=== PATIENT | female | born 1995 | race Caucasian/White ===

== ENCOUNTER 2020-09-19 09:35 | Emergency (ER) | payer BC, MEDICAID, SELFPAY ==
[2020-09-19 09:57] VITALS: BP 139/99; PULSE 85; RESP 16; TEMP 36.6; O2SAT 98
--- NOTE | 2020-09-19 10:22 | ED.GENADULT ---
HPI - General Adult General Chief complaint: Ear Stated complaint: ear infection Time Seen by Provider: 09/19/20 10:23 Source: patient and RN notes reviewed Mode of arrival: ambulatory Limitations: no limitations History of Present Illness HPI narrative: 24-year-old female presents with complaints of left otalgia, throbbing, and decrease hearing for the past 2 days. Amber reports increasing throbbing and pain radiating into LT side of face throughout the night. Reports taking Ibuprofen last on 09/17/2020 and Motrin last on Monday09/18/2020 and OTC ear drops with some relief. Denies swimming or getting water into ear. Denies URI symptoms. No high fevers or chills. Denies injury to ear. No nasal drainage and congestion. Denies nausea, vomiting, tinnitus, and dizziness. Tolerating po intake well. LMP 08/15/2020, irregular per Amber. Remains active. The patient reports she have not been diagnosed with COVID-19. The patient reports she is not waiting for the results of a COVID-19 lab test. The patient reports she do not have weakness or fatigue. The patient reports she do not have a new or worsening cough or shortness of breath. Denies chest pain. The patient reports she do not have any sore throat, loss of taste or smell, and diarrhea. Denies recent traveling. Denies concerns for COVID-19 or exposures been home with limited outdoor exposure except for essential household needs and return home. At this time, patient is not suspected of having COVID-19. Some parts of this dictation were generated by voice recognition software and may contain typographical and/or grammatical inaccuracies. Related Data Allergies Allergy/AdvReac Type Severity Reaction Status Date / Time No Known Allergies Allergy Unverified 09/19/20 09:45 Review of Systems Review of Systems: Narrative: CONSTITUTIONAL: Denies fever, chills, sweats. EYES: Denies visual changes, redness, discharge. ENT: Denies rhinorrhea, congestion, sore throat, drainage, and itching. Complains of LT otalgia, throbbing, decrease hearing. CARDIOVASCULAR: Denies chest pain, palpitations, edema. RESPIRATORY: Denies dyspnea, wheezing, cough. GASTROINTESTINAL: Denies abdominal pain, nausea, vomiting, diarrhea. GENITOURINARY: Denies dysuria, hematuria, abnormal discharge. SKIN: Denies rash or itching. MUSCULOSKELETAL: Denies acute back pain, joint pain, or myalgia. NEUROLOGIC: Denies numbness or focal weakness. PSYCHIATRIC: Denies anxiety or depression. All systems reviewed & are unremarkable except as noted in HPI and below PMFSH Past Medical History Medical History (Updated 09/20/20 @ 00:01 by Enedelia Samayoa) No significant past medical history Surgical History Surgical History (Updated 09/19/20 @ 10:37 by MARK ANTHONY Kovacs) No significant past surgical history Family History Family History (Updated 09/19/20 @ 10:37 by MARK ANTHONY Kovacs) Father Alive and well Mother Alive and well Social History Social History Smoking status: Never smoker Second hand tobacco smoke exposure: No Substance use: never Gender identity (if verbalized by the patient): Female Spiritual care concerns: No Comments At time of signature, I have reviewed and agree with nursing past medical, surgical, social, and family history. Please see nursing chart for further information. There is no relevant family history pertinent to the presenting complaint. Exam Narrative: Exam Narrative: GENERAL: This is a well-nourished, well-developed patient, in no apparent distress. Talks in full sentences and ambulates with steady gait without dyspnea HEAD: Normocephalic, atraumatic. EYES: PERRL. Sclera clear/white. Vision is grossly intact. EARS: Pinna is normal shape and contour. LT ear with mild erythema and moderate swelling of canal without discharge, moderate tenderness to auricle and pinna with palpation
== END 2020-09-19 10:42 | disposition home or self-care (01) ==
PROVIDERS: Emergency Provider Nurse Practitioner Family
DX: H60.91 Unspecified otitis externa, right ear (principal)
CPT/HCPCS: 99213; G0463

== ENCOUNTER 2021-06-15 10:41 | Emergency (ER) | payer BC, MEDICAID, SELFPAY ==
[2021-06-15 10:53] VITALS: BP 147/86; PULSE 75; RESP 18; TEMP 36.5; O2SAT 100
--- NOTE | 2021-06-15 12:18 | ED.URI ---
HPI - URI/Sore Throat General Chief Complaint: Upper Respiratory Infection Stated Complaint: Sore Throat Time Seen by Provider: 06/15/21 12:00 Source: patient, family, RN notes reviewed and old records reviewed Mode of arrival: ambulatory Limitations: no limitations History of Present Illness HPI Narrative: 25-year-old female who presents to [facility] with complaints of sore throat nasal congestion and drainage and some ear discomfort for the past 2 days. Patient states throat is painful to swallow, patient denies any known fever chills or sweats denies any body aches has not had Covid or flu vaccines. Patient states she is taken some ibuprofen for her symptoms. MD elicited complaint: sore throat, rhinorrhea, nasal congestion and other (ear pain) Related Data Allergies Allergy/AdvReac Type Severity Reaction Status Date / Time No Known Allergies Allergy Unverified 06/15/21 11:00 Review of Systems Review of Systems: CONSTITUTIONAL: Denies fever, chills, or sweats. EYES: Denies visual changes, redness, or discharge. ENT: Positive rhinorrhea, congestion, sore throat, or otalgia. CARDIOVASCULAR: Denies chest pain, palpitations, or edema. RESPIRATORY: Denies cough or dyspnea. GASTROINTESTINAL: Denies abdominal pain, nausea, vomiting, or diarrhea. GENITOURINARY: Denies dysuria or hematuria. SKIN: Denies rash or itching. MUSCULOSKELETAL: Denies back pain, joint pain, or myalgia. NEUROLOGIC: Denies headache, numbness, or weakness. PSYCHIATRIC: Denies anxiety or depression. All systems reviewed & are unremarkable except as noted in HPI and below PMFSH Past Medical History Medical History No significant past medical history Surgical History Surgical History No significant past surgical history Family History Family History Father Alive and well Mother Alive and well Social History Social History Smoking status: Never smoker Second hand tobacco smoke exposure: No Substance use: never Gender identity (if verbalized by the patient): Female Spiritual care concerns: No Comments At time of signature, agree with nursing past medical, surgical, social and family history. There is no relevant family history pertinent to the presenting complaint Exam Narrative: GENERAL: Well-appearing, well-nourished, and in no acute distress. HEAD: Normocephalic, atraumatic. EYES: PERRLA and EOMI. ENT: Nares red,clear rhinorrhea or epistaxis. Mucous membranes moist.TM's normal with good light reflex, throat is red with no tonsil exudate or lesions, no acute tonsil enlargement, post nasal drainage present NECK: Supple. No lymphadenopathy CHEST: Clear to auscultation. No respiratory distress.SAO2 100% on room air HEART: Regular rate and rhythm. No murmur heard. Normal peripheral pulses. ABDOMEN: Soft, nontender, nondistended, normal active bowel sounds. EXTREMITIES: Normal range of motion. No edema. SKIN: Warm, dry, no rash. NEURO: No focal deficits. Alert and oriented x3. Course Course Level of Care: Express Care Visit Vital Signs Vital signs: Vital Signs Temperature 36.5 C 06/15/21 10:53 Pulse Rate 75 06/15/21 10:53 Respiratory Rate 18 06/15/21 10:53 Blood Pressure 147/86 H 06/15/21 10:53 Pulse Oximetry 100 06/15/21 10:53 Temperature 36.5 C 06/15/21 10:53 Pulse Rate 75 06/15/21 10:53 Respiratory Rate 18 06/15/21 10:53 Blood Pressure 147/86 H 06/15/21 10:53 Pulse Oximetry 100 06/15/21 10:53 MDM - URI/Sore Throat Differential Diagnosis Differential diagnosis: Likely upper respiratory infection, viral infection, pharyngitis and other (Strep pharyngitis) Medical Records Attestation: I reviewed the patient's medical records. Lab Data Attestation: I reviewed the patient's
== END 2021-06-15 12:31 | disposition home or self-care (01) ==
PROVIDERS: Emergency Provider Registered Nurse
DX: J06.9 Acute upper respiratory infection, unspecified (principal); J02.9 Acute pharyngitis, unspecified
CPT/HCPCS: 87081; 87880; 99213; G0463